=== PATIENT | female | born 1965 | race Caucasian/White ===

== ENCOUNTER 2020-01-26 04:27 | Outpatient (CLI) | payer SELFPAY ==
[2020-01-26 09:13] LABS: HEMOGLOBIN A1C 5.6 % (4.5-6.2)
[2020-01-26 09:28] LABS: CHOL/HDL RATIO 2.83 (0.00-4.99)
== END 2020-01-26 23:59 | disposition home or self-care (01) ==
LOC: HW HEART 04:27
DX: Z01.810 Encounter for preprocedural cardiovascular examination (principal)
CPT/HCPCS: 36415